=== PATIENT | male | born 1985 | race Two or more races ===

== ENCOUNTER 2016-12-15 22:46 | Emergency (ER) | payer SELFPAY ==
[~2016-12-15] VITALS: Ht 167.6 cm; Wt 102.1 kg
[2016-12-15 22:51] VITALS: BP 118/53
[2016-12-16 00:58] LABS: Urine Bacteria NONE SEEN /hpf (None Seen); Urine Blood Negative /uL (Negative); Urine Specific Gravity 1.017 (1.001-1.035); Urine WBC 1 /hpf (0 - 3)
[2016-12-16 01:13] LABS: Amphetamine Screen, Urine NEGATIVE (NEGATIVE); Barbiturate Scree,Urine NEGATIVE (NEGATIVE); Benzodiazephine Screen, Urine NEGATIVE (NEGATIVE); Cannabinoid Screen, Urine NEGATIVE (NEGATIVE); Cocaine Screen, Urine NEGATIVE (NEGATIVE); Opiate Scree,Urine NEGATIVE (NEGATIVE); Phencyclidine Screen, Urine NEGATIVE (NEGATIVE)
== END 2016-12-16 02:53 | disposition home or self-care (01) ==
LOC: EDSEX 22:54 → ER 22:54
DX: S22.32XA Fracture of one rib, left side, initial encounter for closed fracture (principal); S49.92XA Unspecified injury of left shoulder and upper arm, initial encounter; V89.0XXA Person injured in unspecified motor-vehicle accident, nontraffic, initial encounter; Y93.89 Activity, other specified; Y92.89 Other specified places as the place of occurrence of the external cause; Y99.8 Other external cause status
CPT/HCPCS: 70450; 71250; 73030; 80307; 81001